=== PATIENT | female | born 2000 | race Caucasian/White ===

== ENCOUNTER 2023-09-20 00:24 | Emergency (ER) | payer OTHER ==
[~2023-09-20] VITALS: Ht 172 cm; Wt 57.0 kg
[2023-09-20 00:27] VITALS: TEMP 98.3
[2023-09-20 01:22] VITALS: BP 115/65; PULSE 94
== END 2023-09-20 01:22 | disposition home or self-care (01) ==
LOC: COL.ER 00:24
DX: H69.83 Other specified disorders of Eustachian tube, bilateral (principal); T50.905A Adverse effect of unspecified drugs, medicaments and biological substances, initial encounter